=== PATIENT | female | born 1950 | race Caucasian/White ===

== ENCOUNTER → 2016-09-04 | Outpatient (CLI) | payer MEDICARE, BC ==
--- NOTE | 2016-09-04 17:22 | CR ---
EXAMINATION: Right shoulder HISTORY: Pain COMPARISON: 07/27/2010 TECHNIQUE: 3 views FINDINGS: There is no acute osseous abnormality, dislocation, or fracture. Bone mineralization appea rs normal and osteopenic. Mild acromioclavicular osteophytic changes are noted within inferior spur. They calcifications project over the rotator cuff tendons. Moderate joint space narrowing is noted within the glenohumeral joint. Subcortical cystic changes noted at the rotator cuff insertion. IMPRESSION: Degenerative changes without acute findings.
== END | disposition home or self-care (01) ==
LOC: MW.CHORTHO 12:59
PROVIDERS: ATTEND Orthopaedic Surgery
DX: M25.511 Pain in right shoulder (principal); M19.011 Primary osteoarthritis, right shoulder
CPT/HCPCS: 20610; 73030; 99214; J1040

== ENCOUNTER 2019-05-23 08:42 | Day surgery (SDC) | payer MEDICARE, BC ==
[~2019-05-23 08:42] MED LIST: Lactated Ringers 1,000 ML IV SCH; cefOXitin 2 GM in Premix Bag 1 BAG IV ONE
--- NOTE | 2019-05-23 09:44 | PCM.PREANE ---
Preanesthetic Assessment - Anesthesia/Transfusion/Family Hx Anesthesia History: Prior Anesthesia Without Reaction Other Type of Anesthesia Reaction Comment: Denies any known problem in past, reports slight motion sickness Family History of Anesthesia Reaction: No Transfusion History: No Prior Transfusion(s) - Review of Systems General: No Symptoms Pulmonary: No Symptoms Cardiovascular: No Symptoms Gastrointestinal: No Symptoms Neurological: No Symptoms Other: Reports: None - Physical Assessment NPO Status Date: 05/23/19 NPO Status Time: 07:00 Vital Signs: Last Vital Signs Temp 97.3 F 05/23/19 08:54 Pulse 83 05/23/19 08:54 Resp 20 05/23/19 08:54 BP 174/80 H 05/23/19 08:54 Pulse Ox 94 L 05/23/19 08:54 Height: 5 ft 1 in Weight: 68.765 kg ASA Class: 3 Mental Status: Alert & Oriented x3 Airway Class: Mallampati = 2 Dentition: Reports: Normal Dentition ROM/Head Extension: Full Lungs: Clear to Auscultation, Normal Respiratory Effort Cardiovascular: Regular Rate, Regular Rhythm - Allergies Allergies/Adverse Reactions: Allergies Allergy/AdvReac Type Severity Reaction Status Date / Time amoxicillin [Amoxicillin] Allergy Other Verified 05/18/19 10:51 sulfamethoxazole Allergy Rash Verified 05/18/19 10:51 [From Bactrim] trimethoprim [From Bactrim] Allergy Rash Verified 05/18/19 10:51 [place] on the cob Allergy Hives Uncoded 05/18/19 10:51 - Blood Blood Available: No - Anesthesia Plan Pre-Op Medication Ordered: None - Acknowledgements Anesthesia Type Planned: General Anesthesia Pt an Appropriate Candidate for the Planned Anesthesia: Yes Alternatives and Risks of Anesthesia Discussed w Pt/Guardian: Yes Pt/Guardian Understands and Agrees with Anesthesia Plan: Yes Additional Comments: PMH: asthma- uses inhaler daily, no recent exac, htn, thyroid replacement, seizure disorder- last seizure in 1976- on dilantin, ADENIKE- uses CPAP 8-10 hours/ night PLAN: tiva PreAnesthesia Questionnaire HEENT History: Reports: Allergic Rhinitis, Other (See Below) Other HEENT History: wears glasses, has upper and lower dentures Cardiovascular History: Reports: Hypertension Respiratory History: Reports: Asthma, Sleep Apnea Other Respiratory History: uses CPAP, rarely uses rescue inhaler Gastrointestinal History: Reports: GERD Other Gastrointestinal History: Born with 1 kidney Genitourinary History: Reports: Other (See Below) Other Genitourinary History: 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) Other OB/BYN History: hx: Hysterectomy Musculoskeletal History: Reports: Osteoarthritis Other Musculoskeletal History: hx: fractured arm Neurological History: Reports: Seizure, Other (See Below) Other Neuro History: diagnosed with Epilepsy as a child, has not had a seizure for 40+ years, has frequent sinus headaches Endocrine/Metabolic History: Reports: Hypothyroidism Other Endocrine/Metabolic History: Hypothyroidism Other Dermatologic History: Rash that comes & goes - Past Surgical History Head Surgeries/Procedures: Reports: None HEENT Surgical History: Reports: Adenoidectomy, Naso-Sinus Surgery, Tonsillectomy Other HEENT Surgeries/Procedures: T & A as child GI Surgical History: Reports: Colonoscopy Female Surgical History: Reports: Breast Biopsy, Hysterectomy Other Female Surgeries/Procedures: HISTORY Born with 1 Kidney Other Neurological Surgeries/Procedures: Bilateral Carpal TUnnel Release Musculoskeletal Surgical History: Reports: Hip Replacement, Knee Replacement Other Musculoskeletal Surgeries/Procedures:: bilateral CHASE, right TKA Other Oncologic Surgeries/Procedures: Benign Breast Lumpectomy - SUBSTANCE USE Smoking Status *Q: Never Smoker Recreational Drug Use History: No - HOME MEDS Home Medications: Home Meds Budesonide/Formoterol [Symbicort 160-4.5 MCG] 2 inh INH BID 11/17/13 [History] Citalopram [Citalopram HBr] 40 mg PO DAILY 11/17/13 [History] Levothyroxine [Synthroid] 50 mcg PO ACBRK 11/17/13 [History] Losartan [Cozaar] 100 mg PO ACBRK 11/17/13 [History] Melatonin 15 mg PO BEDTIME PRN 11/17/13 [History] Omeprazole 40 mg PO DAILY 11/17/13 [History] Phenytoin Sodium Extended [Dilantin] 200 mg PO BID 11/17/13 [History] Fexofenadine [Esther] 180 mg PO DAILY 02/27/15 [History] Fluticasone Propionate [Flonase Allergy Relief] 1 spray NASBOTH DAILY 04/08/15 [ History] Albuterol [Proair HFA] 2 inh INH Q4H PRN 04/27/15 [History] Azelastine HCl [Azelastine] 1 spray NASBOTH DAILY 05/18/19 [History] EPINEPHrine [Epipen] 0.3 mg SQ ASDIRECTED PRN 05/18/19 [History] Furosemide [Lasix] 20 mg PO QAM 05/18/19 [History] Ipratropium/Albuterol Sulfate [Iprat-Albut 0.5-3(2.5) MG/3 ML] 1 dose NEB ASDIRECTED PRN 05/18/19 [History] Montelukast Sodium 10 mg PO DAILY 05/18/19 [History] Multivitamin [Daily Multiple Vitamin] 1 tab PO DAILY 05/18/19 [History] Pantoprazole Sodium 40 mg PO DAILY 05/18/19 [History] Tiotropium [place] [Spiriva Respimat] 1 dose INH DAILY 05/18/19 [History] - CURRENT (IN HOUSE) MEDS Current Meds: Current Medications Lactated Ringer's (Ringers, Lactated) 1,000 mls @ 125 mls/hr IV ASDIRECTED TURNER Last Admin: 05/23/19 09:10 Dose: 125 mls/hr Discontinued Medications Cefoxitin Sodium 2 gm/ Premix 50 mls @ 100 mls/hr IV ONETIME ONE Stop: 05/23/19 07:29
[2019-05-23] MEDS ORDERED: Propofol 200 MG/20 ML SDV ONE ×2 (11:33→11:59)
--- NOTE | 2019-05-23 12:24 | PCM.OPNOTE ---
- General Post-Op/Procedure Note Date of Surgery/Procedure: 05/23/19 Operative Procedure(s): Colonoscopy Pre Op Diagnosis: Change in bowel habits. Decreased stool caliber. Unexplained weight loss. Post-Op Diagnosis: No evidence of neoplasia. Anesthesia Technique: MAC (ASA III) Primary Surgeon: Tod Miranda Operations Label Clerk: Tayler Nguyen Condition: Good Free Text/Narrative:: DICTATION 350318 CPT CODE 90277
[2019-05-23] MEDS ORDERED: Lactated Ringers 1,000 ML IV SCH (12:30)
--- NOTE | 2019-05-23 12:38 | PCM.POSTAN ---
POST ANESTHESIA ASSESSMENT - MENTAL STATUS Mental Status: Alert, Oriented - VITAL SIGNS Vital Signs: Last Vital Signs Temp 97.3 F 05/23/19 08:54 Pulse 73 05/23/19 12:30 Resp 15 05/23/19 12:30 BP 138/76 05/23/19 12:30 Pulse Ox 98 05/23/19 12:30 - RESPIRATORY Respiratory Status: Respiratory Rate WNL, Airway Patent, O2 Saturation Stable - CARDIOVASCULAR CV Status: Pulse Rate WNL, Blood Pressure Stable - GASTROINTESTINAL GI Status: No Symptoms - POST OP HYDRATION Hydration Status: Adequate & Stable
--- NOTE | 2019-05-23 12:38 | PCM48HPAN ---
Post Anesthesia Note - EVALUATION WITHIN 48HRS OF ANESTHETIC Vital Signs in Normal Range: Yes Patient Participated in Evaluation: Yes Respiratory Function Stable: Yes Airway Patent: Yes Cardiovascular Function Stable: Yes Hydration Status Stable: Yes Pain Control Satisfactory: Yes Nausea and Vomiting Control Satisfactory: Yes Mental Status Recovered: Yes Vital Signs: Last Vital Signs Temp 97.3 F 05/23/19 08:54 Pulse 73 05/23/19 12:30 Resp 15 05/23/19 12:30 BP 138/76 05/23/19 12:30 Pulse Ox 98 05/23/19 12:30
[2019-05-23 12:39] VITALS: BP 144/66; PULSE 77
--- NOTE | 2019-05-23 12:43 | OR ---
SURGEON: Tod Miranda M.D. DATE OF PROCEDURE: 05/23/2019 OPERATION PERFORMED: Colonoscopy. PRIMARY SURGEON: Tod Miranda MD. CARPENTER ASSISTANT INSTALLER: assistant county attorney: Dr. Nguyen, PGY2. ANESTHESIA: MAC. ASA CLASSIFICATION: III. PREOPERATIVE DIAGNOSES: 1. Change in bowel habits. 2. Decreased stool caliber. 3. Weight loss. POSTOPERATIVE DIAGNOSIS: No evidence of neoplasia. DESCRIPTION OF PROCEDURE: The patient was taken to the endoscopy room and positioned on the endoscopy table in the left lateral decubitus position. Time-out was called for appropriate identification of the patient and procedure. Monitored anesthesia care was provided. The colonoscope was inserted into the rectum and advanced with moderate difficulty to the cecum. The colonoscope was retroflexed to visualize the ascending colon from below, then straightened and slowly withdrawn. The cecum, ascending colon, hepatic flexure, transverse colon, splenic flexure, descending colon, sigmoid colon, and rectum were very well visualized. No tumors, polyps, diverticula, or angiodysplastic changes were noted anywhere in the lower gastrointestinal tract. Once the colonoscope was withdrawn to the rectum, it was retroflexed to visualize the anal orifice from above. Again, no tumors or polyps were seen. The patient does have internal hemorrhoids that are not actively bleeding. The colonoscope was then straightened, the rectum aspirated, and the colonoscope removed. The patient tolerated the procedure well and was taken to recovery room in stable condition. AMANDA / MARGARITA /[id number]
== END 2019-05-23 13:04 | disposition home or self-care (01) ==
LOC: MW.SDS 08:42
PROVIDERS: ATTEND Surgery
DX: R19.4 Change in bowel habit (principal); R63.4 Abnormal weight loss; K64.8 Other hemorrhoids
CPT/HCPCS: 45378; J0694; J2001; J2704; J7120; 00811

== ENCOUNTER 2020-01-26 13:59 | Emergency (ER) | payer MEDICARE, BC ==
[2020-01-26] MEDS ORDERED: Acetaminophen 325 MG Tab PO ONE (14:02)
[2020-01-26] MEDS ORDERED: Morphine 15 MG Tab PO ONE (14:02)
--- NOTE | 2020-01-26 14:06 | EDM.PDOC ---
ED HPI GENERAL MEDICAL PROBLEM - General Chief Complaint: Upper Extremity Injury/Pain Stated Complaint: FELL Time Seen by Provider: 01/26/20 14:00 - History of Present Illness INITIAL COMMENTS - FREE TEXT/NARRATIVE: HPI: This 70-year-old female presents with right upper extremity pain after fall. Pain in the right humerus, elbow and shoulder. Worse with movement. Better with rest. Mechanism of injury: Ground-level fall Time of Injury: Just prior to arrival came straight here ROS: A 10-point review of systems, other than pertinent positives and negatives as stated per HPI, is otherwise negative. Physical Exam: VITAL SIGNS: Reviewed. GENERAL: Appears to be in acute pain HEAD: No signs of head trauma FACE: The facial bones are nontender to palpation. The mandible is nontender to palpation. The oropharynx is normal. There is no dental malocclusion. EYES: Pupils are equal. Extraocular motions intact. EARS: Hearing grossly intact. NOSE: Normal to internal and external inspection NECK: Supple. NEXUS Criteria for Imaging of C-Spine: Focal Neuro Deficit: No Spinal Midline Tenderness: No ALOC: No Intoxication: No Distracting Injury: No C-Spine can be clinically cleared. No imaging Required. CHEST: Nontender to palpation. No crepitus, subcutaneous emphysema, or discoloration. LUNGS: Clear and equal breath sounds bilaterally. No wheezes, rales, or rhonchi. CARDIAC: Regular rate and rhythm. S1 and S2, without murmurs, gallops, or rubs. VASCULAR: No Edema. Peripheral pulses normal and equal in all extremities. ABDOMEN: Soft, without detectable tenderness. No sign of distention. No rebound or guarding, and no masses palpated. Bowel Sounds present. PELVIS: The pelvis is nontender to palpation. There is no tenderness with AP or lateral compression of the pelvis. BACK: The entire axial spine was palpated and there was no tenderness, deformity, or step-off. MUSCULOSKELETAL: Right shoulder, humerus and elbow pain. Distal neurovascular function intact.. NEUROLOGIC EXAM: Alert and oriented x 3. EYE 4 verbal 5 motor 6 no focal sensory or strength deficits. Speech normal. Follows commands. PSYCHIATRIC: Mood normal. SKIN: No rash. Initial Impression & Plan: Extremity trauma: Differential diagnosis includes fracture, dislocation, strain, contusion, tendon or ligamentous injury, compartment syndrome, neurovascular i njury, muscle rupture. X-rays, oral pain medications, reevaluate Right Shoulder Pain Score (Numeric/FACES): 10 - Related Data Allergies Allergy/AdvReac Type Severity Reaction Status Date / Time amoxicillin [Amoxicillin] Allergy Other Verified 01/26/20 14:28 sulfamethoxazole Allergy Rash Verified 01/26/20 14:28 [From Bactrim] trimethoprim [From Bactrim] Allergy Rash Verified 01/26/20 14:28 [place] on the cob Allergy Hives Uncoded 01/26/20 14:28 Home Meds: Home Meds Budesonide/Formoterol [Symbicort 160-4.5 MCG] 2 inh INH BID 11/17/13 [History] Citalopram [Citalopram HBr] 40 mg PO DAILY 11/17/13 [History] Levothyroxine [Synthroid] 50 mcg PO ACBRK 11/17/13 [History] Losartan [Cozaar] 100 mg PO ACBRK 11/17/13 [History] Melatonin 15 mg PO BEDTIME PRN 11/17/13 [History] Omeprazole 40 mg PO DAILY 11/17/13 [History] Phenytoin Sodium Extended [Dilantin] 200 mg PO BID 11/17/13 [History] Fexofenadine [Esther] 180 mg PO DAILY 02/27/15 [History] Fluticasone Propionate [Flonase Allergy Relief] 1 spray NASBOTH DAILY 04/08/15 [History] Albuterol [Proair HFA] 2 inh INH Q4H PRN 04/27/15 [History] Azelastine HCl [Azelastine] 1 spray NASBOTH DAILY 05/18/19 [History] EPINEPHrine [Epipen] 0.3 mg SQ ASDIRECTED PRN 05/18/19 [History] Furosemide [Lasix] 20 mg PO QAM 05/18/19 [History] Ipratropium/Albuterol Sulfate [Iprat-Albut 0.5-3(2.5) MG/3 ML] 1 dose NEB ASDIRECTED PRN 05/18/19 [History] Montelukast Sodium 10 mg PO DAILY 05/18/19 [History] Multivitamin [Daily Multiple Vitamin] 1 tab PO DAILY 05/18/19 [History] Pantoprazole Sodium 40 mg PO DAILY 05/18/19 [History] Tiotropium [place] [Spiriva Respimat] 1 dose INH DAILY 05/18/19 [History] Past Medical History HEENT History: Reports: Allergic Rhinitis, Other (See Below) Other HEENT History: wears glasses, has upper and lower dentures Cardiovascular History: Reports: Hypertension Respiratory History: Reports: Asthma, Sleep Apnea Other Respiratory History: uses CPAP, rarely uses rescue inhaler Gastrointestinal History: Reports: GERD Other Gastrointestinal History: Born with 1 kidney Genitourinary History: Reports: Other (See Below) Other Genitourinary History: 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) Other ELECTRONIC ENGRAVER History: hx: Hysterectomy Musculoskeletal History: Reports: Osteoarthritis Other Musculoskeletal History: hx: fractured arm Neurological History: Reports: Seizure, Other (See Below) Other Neuro History: diagnosed with Epilepsy as a child, has not had a seizure for 40+ years, has frequent sinus headaches Endocrine/Metabolic History: Reports: Hypothyroidism Other Endocrine/Metabolic History: Hypothyroidism Other Dermatologic History: Rash that comes & goes - Past Surgical History Head Surgeries/Procedures: Reports: None HEENT Surgical History: Reports: Adenoidectomy, Naso-Sinus Surgery, Tonsillectomy Other HEENT Surgeries/Procedures: T & A as child GI Surgical History: Reports: Colonoscopy Female Surgical History: Reports: Breast Biopsy, Hysterectomy Other Female Surgeries/Procedures: HISTORY Born with 1 Kidney Other Neurological Surgeries/Procedures: Bilateral Carpal TUnnel Release Musculoskeletal Surgical History: Reports: Hip Replacement, Knee Replacement Other Musculoskeletal Surgeries/Procedures:: bilateral CHASE, right TKA Other Oncologic Surgeries/Procedures: Benign Breast Lumpectomy Review of Systems - Review of Systems Review Of Systems: See Below (noted) ED EXAM, GENERAL - Physical Exam Exam: See Below (noted) Course - Vital Signs Text/Narrative:: Reviewed the chest x-ray is prior to official radiology review and appears the patient has a fracture dislocation at the cervical neck and an anterior type dislocation. It is comminuted and significantly displaced. This will require transfer to a facility with orthopedic backup. Patient has given consent for transfer. The patient does report that she has had a runny nose, cough and difficulty sleeping with some mild body aches. We will obtain a coronavirus test. Last Recorded V/S: Last Vital Signs Temp 97.4 F 01/26/20 14:26 Pulse 68 01/26/20 16:30 Resp 18 01/26/20 16:30 BP 95/50 L 01/26/20 16:30 Pulse Ox 94 L 01/26/20 16:30 - Orders/Labs/Meds Meds: Medications Discontinued Medications Generic Name Dose Route Start Last Admin Trade Name Jayme PRN Reason Stop Dose Admin Acetaminophen 975 mg 01/26/20 14:02 01/26/20 14:57 Tylenol PO 01/26/20 14:03 975 mg NOW ONE Administration Morphine Sulfate 15 mg 01/26/20 14:02 01/26/20 14:58 Morphine PO 01/26/20 14:03 15 mg ONETIME ONE Administration - Re-Assessments/Exams Free Text/Narrative Re-Assessment/Exam: 01/26/20 15:52 Pain is well controlled. CT to rule out underlying injury and better evaluate the shoulder. Dr. Donnelly, emergency department at [facility], accepts this patient in transfer and we will transfer via ambulance. 01/27/20 10:41 PROCEDURE: Fracture Care LOCATION AND FRACTURE TYPE: Right shoulder fracture dislocation INDICATION: Fracture SPLINTING PROCEDURE NOTE: Shoulder immobilizer placed COMPLICATIONS: None NEUROVASCULAR EXAM: intact both before and after procedure. My diagnostic impression 1. Fracture dislocation of the right shoulder Plan is transfer to orthopedic care. Departure - Departure Time of Disposition: 15:14 Disposition: DC/Tfer to Acute Hospital 02 Condition: Fair Clinical Impression: Fracture dislocation of right shoulder joint, Fall - Discharge Information *PRESCRIPTION DRUG MONITORING PROGRAM REVIEWED*: Not Applicable *COPY OF PRESCRIPTION DRUG MONITORING REPORT IN PATIENT JAMES: Not Applicable Referrals: Hugo Yeager MD [Primary Care Provider] - Forms: ED Department Discharge
--- NOTE | 2020-01-26 15:22 | CR ---
Right elbow: 3 views of the right elbow were obtained. Parison: Positioning somewhat less than optimal for good exam. Osteopenia is present. No discrete joint effusion is seen. No definite fracture or dislocation is seen. Impression: 1. Less than optimal study because of positioning. 2. Nothing acute is definitely appreciated. Recommend follow-up study in 10-14 days if patient remains symptomatic. Diagnostic code #3 Study was dictated in MDT
--- NOTE | 2020-01-26 15:26 | CR ---
Right shoulder: 3 views right shoulder were obtained. Displaced surgical neck fracture is seen. Additional displaced fracture at the base of the greater tuberosity. No additional abnormality is seen other than osteopenia. Impression: 1. Displaced proximal humeral fracture as described above. Diagnostic code #5 Study was dictated in MDT
--- NOTE | 2020-01-26 16:34 | CT ---
CT chest Technique: Multiple axial sections through the chest were obtained. Intravenous contrast was not utilized. Comparison: No prior chest imaging. Findings: Visualized upper abdominal structures shows no discrete abnormality. Heart is mildly enlarged with small pericardial effusion. Aorta shows atherosclerotic calcification without aneurysm. Mediastinum and hilar region show no adenopathy. No axillary adenopathy is seen. Proximal humeral fracture is again noted. 5 mm nodule is noted within the right lung base. Lungs show no acute parenchymal change. No pleural effusions or pneumothorax is seen. Bone window settings show scattered degenerative change within the spine. Fracture is again seen within the right shoulder. Anterior wedge deformity within the mid thoracic spine which is most likely chronic. Impression: 1. Findings as noted above. Other than previously noted right shoulder fracture, no other acute abnormality is appreciated. Other nonacute findings as described above. Diagnostic code #3 This report was dictated in MDT
[2020-01-26 17:20] VITALS: BP 95/50; PULSE 68
--- NOTE | 2020-01-27 07:14 | CT ---
CT right shoulder Technique: Multiple axial sections through the right shoulder were obtained. Reconstructed coronal and sagittal images were obtained. Findings: Degenerative change noted within the glenohumeral joint with joint space narrowing and subchondral cysts within both humeral head and glenoid. Fracture is noted within the anatomic neck with displacement of 2.3 cm. Fracture is noted within the base of the greater tuberosity being displaced by 1.4 cm. Coral medial angulation is also noted of the proximal humeral fracture. Degenerative spurring is noted off the inferior acromion process. No additional fracture or other abnormality is seen. Impression: 1. Advanced degenerative change within the glenohumeral joint. 2. Displaced fracture involving the anatomic neck and fracture at the base of the greater tuberosity. Diagnostic code #3 This report was dictated in MDT MTDD
== END 2020-01-26 16:49 ==
LOC: MW.ED 13:59
DX: S42.291A Other displaced fracture of upper end of right humerus, initial encounter for closed fracture (principal); S42.91XA Fracture of right shoulder girdle, part unspecified, initial encounter for closed fracture; J45.909 Unspecified asthma, uncomplicated; K21.9 Gastro-esophageal reflux disease without esophagitis; R56.9 Unspecified convulsions; E03.9 Hypothyroidism, unspecified; W19.XXXA Unspecified fall, initial encounter; Z91.018 Allergy to other foods; Z88.1 Allergy status to other antibiotic agents; Z88.2 Allergy status to sulfonamides
CPT/HCPCS: 71250; 73030; 73080; 73200; 99285; A9270; 99283

== ENCOUNTER 2022-09-15 18:11 | Emergency (ER) | payer MEDICARE, BC ==
[2022-09-15] MEDS ORDERED: Oxymetazoline 0.05% Nasal Spray 30 ML Bottle NAS ONE (20:17)
[2022-09-15] MEDS ORDERED: Tranexamic Acid 1,000 MG/10 ML Vial IV ONE (22:10)
[2022-09-15 22:12] LABS: CARBON DIOXIDE,CO2 29.4 mmol/L (21.0-32.0)
[2022-09-15 23:52] VITALS: BP 177/57; PULSE 81
== END 2022-09-15 23:51 | disposition home or self-care (01) ==
LOC: MW.ED 18:11
DX: R04.0 Epistaxis (principal); I10 Essential (primary) hypertension; J45.909 Unspecified asthma, uncomplicated; K21.9 Gastro-esophageal reflux disease without esophagitis; M19.90 Unspecified osteoarthritis, unspecified site; E03.9 Hypothyroidism, unspecified; Z88.0 Allergy status to penicillin; Z88.2 Allergy status to sulfonamides; Z91.048 Other nonmedicinal substance allergy status; Z79.899 Other long term (current) drug therapy
CPT/HCPCS: 36415; 80048; 85027; 85610; 99283; A9270-GY; J3490

== ENCOUNTER 2023-07-08 17:30 | Inpatient (IN) | payer MEDICARE, BC ==
[2023-07-08] MEDS ORDERED: Sodium Chloride 0.9% 10 ML Syringe FLUSH PRN (18:02)
[2023-07-08] MEDS ORDERED: Sodium Chloride 0.9% 2.5 ML Syringe FLUSH PRN (18:02)
[2023-07-08 18:58] LABS: BASOPHILS ABSOLUTE AUTO 0.01 K/uL (0.00-0.20); BASOPHILS PERCENT AUTO 0.1 % (0.0-1.0); EOSINOPHILS ABSOLUTE AUTO 0.08 K/uL (0.00-0.45); EOSINOPHILS PERCENT AUTO 0.7 % (0.0-6.0); HEMOGLOBIN 14.1 g/dL (12.0-16.0); IMMATURE GRAN ABSOLUTE AUTO 0.04 K/uL (0.00-0.05); IMMATURE GRAN PERCENT AUTO 0.3 % (0.0-0.4); LYMPHOCYTES ABSOLUTE AUTO 0.35 K/uL (1.00-4.80); LYMPHOCYTES PERCENT AUTO 2.9 % (24.0-44.0); MEAN CORPUSCULAR HEMOGLOBIN 32.7 pg (28.0-32.0); MEAN CORPUSCULAR HGB CONC 37.1 g/dL (32.0-36.0); MEAN CORPUSCULAR VOLUME 88.2 fL (83.0-99.0); MEAN PLATELET VOLUME 8.5 fL (9.4-12.3); MONOCYTES ABSOLUTE AUTO 0.93 K/uL (0.00-0.80); MONOCYTES PERCENT AUTO 7.8 % (0.0-8.0); NEUTROPHILS ABSOLUTE AUTO 10.53 K/uL (1.80-7.70); NEUTROPHILS PERCENT AUTO 88.2 % (41.0-71.0); PLATELET COUNT,PLT 215 K/uL (150-400); RED BLOOD CELL COUNT 4.31 M/uL (4.10-5.30); WHITE BLOOD CELL COUNT,WBC 11.94 K/uL (3.9-11.3)
[2023-07-08] MEDS ORDERED: Sodium Chloride 0.9% 500 ML IV SCH (19:00)
[2023-07-08 19:19] LABS: ALBUMIN 3.6 g/dL (3.4-5.0); BILIRUBIN TOTAL 0.8 mg/dL (0.2-1.0); CALCIUM 8.5 mg/dL (8.5-10.1); CARBON DIOXIDE,CO2 27.2 mmol/L (21.0-32.0); CREATININE 0.4 mg/dL (0.6-1.0); EST CRCL DRUG DOSING (CG) 96.11 mL/min; POTASSIUM,K 3.2 mmol/L (3.5-5.1); PROTEIN TOTAL,TP 7.2 g/dL (6.4-8.2); TSH ULTRASENSITIVE 1.5 uIU/mL (0.36-3.74)
[2023-07-08 19:34] LABS: CORONAVIRUS COVID-19 NAA NEGATIVE (NEGATIVE); INFLUENZA A NAA NEGATIVE (NEGATIVE); INFLUENZA B NAA NEGATIVE (NEGATIVE); RESPIRATORY SYNCYTIAL VIR NAA NEGATIVE (NEGATIVE)
[2023-07-08 20:04] LABS: MAGNESIUM 1.8 mg/dL (1.8-2.4)
[2023-07-08 20:48] LABS: CALCIUM 8.2 mg/dL (8.5-10.1); CARBON DIOXIDE,CO2 27.4 mmol/L (21.0-32.0); CREATININE 0.4 mg/dL (0.6-1.0); EST CRCL DRUG DOSING (CG) 96.11 mL/min; POTASSIUM,K 3.2 mmol/L (3.5-5.1)
[2023-07-08 20:50] LABS: APPEARANCE,URINE CLEAR; BILIRUBIN,URINE NEGATIVE (NEGATIVE); COLOR,URINE YELLOW; GLUCOSE,URINE NEGATIVE (NEGATIVE); KETONES,URINE 40 mg/dL (NEGATIVE); LEUKOCYTE ESTERASE,URINE NEGATIVE (NEGATIVE); NITRITE,URINE NEGATIVE (NEGATIVE); OCCULT BLOOD,URINE NEGATIVE (NEGATIVE); PROTEIN,URINE 30 mg/dL (NEGATIVE); UROBILINOGEN,URINE 0.2 EU/dL (<2.0)
[2023-07-08 20:57] LABS: BACTERIA,URINE FEW (NEGATIVE); EPITHELIAL CELLS,URINE FEW (NONE-FEW)
[2023-07-08] MEDS ORDERED: Potassium Chloride 10% 20 MEQ/15 ML Soln 15 ML UD Cup PO ONE (20:57)
[2023-07-08] MEDS: Phenytoin 100 MG Cap.ER PO SCH (21:32)
[2023-07-08 21:40] LABS: CREATININE,URINE RAND 57.2 mg/dL
[2023-07-09] MEDS: Sodium Chloride 0.9% 1,000 ML IV SCH ×3 (00:27→20:17)
[2023-07-09 01:02] LABS: CALCIUM 8.9 mg/dL (8.5-10.1); CARBON DIOXIDE,CO2 27.7 mmol/L (21.0-32.0); CREATININE 0.5 mg/dL (0.6-1.0); EST CRCL DRUG DOSING (CG) 73.36 mL/min; POTASSIUM,K 3.6 mmol/L (3.5-5.1)
[2023-07-09 06:42] LABS: CREATININE 0.4 mg/dL (0.6-1.0); EST CRCL DRUG DOSING (CG) 91.7 mL/min; POTASSIUM,K 3.3 mmol/L (3.5-5.1)
[2023-07-09] MEDS ORDERED: Pantoprazole 40 MG Tab.CR PO SCH (07:30)
[2023-07-09] MEDS: Levothyroxine 50 MCG Tab PO SCH (07:58)
[2023-07-09] MEDS: Phenytoin 100 MG Cap.ER PO SCH ×3 (08:00→20:20)
[2023-07-09] MEDS ORDERED: Potassium Chloride 20 MEQ Tab.ER PO ONE (08:19)
[2023-07-09] MEDS ORDERED: Albuterol/Ipratropium 3.0-0.5 MG/3 ML Neb Soln NEB PRN (11:56)
[2023-07-09] MEDS ORDERED: Tiotropium Bromide 4 GM Inhalation Spray (2.5mcg/1 dose; 10 doses) INH SCH (12:00)
[2023-07-09 12:15] LABS: CALCIUM 7.9 mg/dL (8.5-10.1); CREATININE 0.4 mg/dL (0.6-1.0); EST CRCL DRUG DOSING (CG) 91.7 mL/min; POTASSIUM,K 3.8 mmol/L (3.5-5.1)
[2023-07-09] MEDS ORDERED: Enoxaparin 40 MG/0.4 ML Syringe SUBCUT SCH (12:15)
[2023-07-09] MEDS ORDERED: Albuterol 8 GM Inhaler INH PRN (12:24)
[2023-07-09] MEDS ORDERED: Formoterol/Mometasone 200-5 MCG 8.8 GM Inhaler INH SCH (12:30)
[2023-07-09] MEDS ORDERED: Melatonin 3 MG Tab PO PRN (12:30)
[2023-07-09] MEDS: amLODIPine 5 MG Tab PO SCH (12:43)
[2023-07-09] MEDS: Citalopram 20 MG Tab PO SCH (12:46)
[2023-07-09] MEDS: Fluticasone NASAL Spray 16 GM Bottle NASBOTH SCH (12:46)
[2023-07-09] MEDS: Multivitamin Tab PO SCH (12:46)
[2023-07-09] MEDS: Cetirizine 10 MG Tab PO SCH (12:46)
[2023-07-09] MEDS: AZELASTINE HCL NASBOTH SCH (12:51)
[2023-07-09] MEDS: VILANTEROL INH SCH (17:21)
[2023-07-09] MEDS: FLUTICASONE FUROATE INH SCH (17:21)
[2023-07-09] MEDS: Montelukast 10 MG Tab PO SCH (20:21)
[2023-07-09] MEDS: Pantoprazole 40 MG Tab.CR PO SCH (20:21)
[2023-07-09 21:19] LABS: CARBON DIOXIDE,CO2 25.2 mmol/L (21.0-32.0); CREATININE 0.4 mg/dL (0.6-1.0); EST CRCL DRUG DOSING (CG) 91.7 mL/min; POTASSIUM,K 3.6 mmol/L (3.5-5.1)
[2023-07-10] MEDS: Acetaminophen 325 MG Tab PO PRN ×2 (01:58→19:17)
[2023-07-10] MEDS ORDERED: Diltiazem 25 MG/5 ML SDV IVPUSH ONE (04:02)
[2023-07-10] MEDS: Diltiazem 25 MG/5 ML SDV IVPUSH PRN ×2 (05:38→08:45)
[2023-07-10 06:07] LABS: CALCIUM 7.7 mg/dL (8.5-10.1); CARBON DIOXIDE,CO2 25.2 mmol/L (21.0-32.0); CREATININE 0.3 mg/dL (0.6-1.0); EST CRCL DRUG DOSING (CG) 122.27 mL/min; POTASSIUM,K 3.2 mmol/L (3.5-5.1)
[2023-07-10] MEDS: Levothyroxine 50 MCG Tab PO SCH (07:30)
[2023-07-10] MEDS ORDERED: Potassium Chloride 20 MEQ Tab.ER PO ONE ×2 (08:31→11:35)
[2023-07-10] MEDS: Multivitamin Tab PO SCH (08:58)
[2023-07-10] MEDS: amLODIPine 5 MG Tab PO SCH (08:58)
[2023-07-10] MEDS: Citalopram 20 MG Tab PO SCH (08:58)
[2023-07-10] MEDS: Phenytoin 100 MG Cap.ER PO SCH ×2 (08:58→21:51)
[2023-07-10] MEDS: Cetirizine 10 MG Tab PO SCH (09:00)
[2023-07-10] MEDS ORDERED: Sodium Chloride 1 GM Tab PO ONE ×2 (09:00→18:10)
[2023-07-10] MEDS: AZELASTINE HCL NASBOTH SCH (09:02)
[2023-07-10] MEDS: FLUTICASONE FUROATE INH SCH (09:03)
[2023-07-10] MEDS: Fluticasone NASAL Spray 16 GM Bottle NASBOTH SCH (09:03)
[2023-07-10] MEDS: VILANTEROL INH SCH (09:03)
[2023-07-10] MEDS ORDERED: Magnesium Sulfate/Water 2 GM in Premix Bag 1 BAG IV ONE (11:35)
[2023-07-10 11:43] LABS: BASOPHILS ABSOLUTE AUTO 0.02 K/uL (0.00-0.20); BASOPHILS PERCENT AUTO 0.2 % (0.0-1.0); EOSINOPHILS ABSOLUTE AUTO 0.04 K/uL (0.00-0.45); EOSINOPHILS PERCENT AUTO 0.4 % (0.0-6.0); HEMATOCRIT 35.2 % (37.0-47.0); HEMOGLOBIN 13.1 g/dL (12.0-16.0); IMMATURE GRAN ABSOLUTE AUTO 0.03 K/uL (0.00-0.05); IMMATURE GRAN PERCENT AUTO 0.3 % (0.0-0.4); LYMPHOCYTES ABSOLUTE AUTO 0.56 K/uL (1.00-4.80); LYMPHOCYTES PERCENT AUTO 5.7 % (24.0-44.0); MEAN CORPUSCULAR HGB CONC 37.2 g/dL (32.0-36.0); MEAN CORPUSCULAR VOLUME 88.7 fL (83.0-99.0); MEAN PLATELET VOLUME 8.6 fL (9.4-12.3); MONOCYTES PERCENT AUTO 8.1 % (0.0-8.0); NEUTROPHILS ABSOLUTE AUTO 8.38 K/uL (1.80-7.70); NEUTROPHILS PERCENT AUTO 85.3 % (41.0-71.0); PLATELET COUNT,PLT 215 K/uL (150-400); RED BLOOD CELL COUNT 3.97 M/uL (4.10-5.30); WHITE BLOOD CELL COUNT,WBC 9.83 K/uL (3.9-11.3)
[2023-07-10 12:32] LABS: CALCIUM 8.3 mg/dL (8.5-10.1); CARBON DIOXIDE,CO2 24.2 mmol/L (21.0-32.0); CREATININE 0.3 mg/dL (0.6-1.0); EST CRCL DRUG DOSING (CG) 122.27 mL/min; POTASSIUM,K 4.1 mmol/L (3.5-5.1)
[2023-07-10] MEDS: Metoprolol Tartrate 25 MG Tab PO SCH ×2 (12:59→23:50)
[2023-07-10] MEDS: Apixaban 5 MG Tab PO SCH ×2 (13:06→21:52)
[2023-07-10 20:19] LABS: CALCIUM 8.2 mg/dL (8.5-10.1); CARBON DIOXIDE,CO2 26.6 mmol/L (21.0-32.0); CREATININE 0.4 mg/dL (0.6-1.0); EST CRCL DRUG DOSING (CG) 91.7 mL/min; POTASSIUM,K 3.8 mmol/L (3.5-5.1)
[2023-07-10] MEDS: Pantoprazole 40 MG Tab.CR PO SCH (21:51)
[2023-07-10] MEDS: Montelukast 10 MG Tab PO SCH (21:52)
[2023-07-10] MEDS: Ibuprofen 400 MG Tab PO PRN (23:51)
[2023-07-11] MEDS: Acetaminophen 325 MG Tab PO PRN ×3 (01:28→15:40)
[2023-07-11 06:01] LABS: BASOPHILS ABSOLUTE AUTO 0.02 K/uL (0.00-0.20); BASOPHILS PERCENT AUTO 0.3 % (0.0-1.0); EOSINOPHILS ABSOLUTE AUTO 0.12 K/uL (0.00-0.45); EOSINOPHILS PERCENT AUTO 1.7 % (0.0-6.0); HEMATOCRIT 34.1 % (37.0-47.0); HEMOGLOBIN 12.7 g/dL (12.0-16.0); IMMATURE GRAN ABSOLUTE AUTO 0.05 K/uL (0.00-0.05); IMMATURE GRAN PERCENT AUTO 0.7 % (0.0-0.4); LYMPHOCYTES ABSOLUTE AUTO 0.74 K/uL (1.00-4.80); LYMPHOCYTES PERCENT AUTO 10.2 % (24.0-44.0); MEAN CORPUSCULAR HEMOGLOBIN 32.7 pg (28.0-32.0); MEAN CORPUSCULAR HGB CONC 37.2 g/dL (32.0-36.0); MEAN CORPUSCULAR VOLUME 87.9 fL (83.0-99.0); MEAN PLATELET VOLUME 8.5 fL (9.4-12.3); MONOCYTES ABSOLUTE AUTO 0.86 K/uL (0.00-0.80); MONOCYTES PERCENT AUTO 11.8 % (0.0-8.0); NEUTROPHILS ABSOLUTE AUTO 5.48 K/uL (1.80-7.70); NEUTROPHILS PERCENT AUTO 75.3 % (41.0-71.0); PLATELET COUNT,PLT 233 K/uL (150-400); RED BLOOD CELL COUNT 3.88 M/uL (4.10-5.30); WHITE BLOOD CELL COUNT,WBC 7.27 K/uL (3.9-11.3)
[2023-07-11 06:31] LABS: CALCIUM 8.1 mg/dL (8.5-10.1); CARBON DIOXIDE,CO2 28.1 mmol/L (21.0-32.0); CREATININE 0.4 mg/dL (0.6-1.0); EST CRCL DRUG DOSING (CG) 91.7 mL/min; MAGNESIUM 1.9 mg/dL (1.8-2.4); PHOSPHORUS 1.9 mg/dL (2.6-4.7); POTASSIUM,K 3.9 mmol/L (3.5-5.1)
[2023-07-11] MEDS: Levothyroxine 50 MCG Tab PO SCH (06:31)
[2023-07-11] MEDS ORDERED: Sodium Chloride 1 GM Tab PO ONE ×2 (07:55→11:00)
[2023-07-11] MEDS: Phenytoin 100 MG Cap.ER PO SCH ×2 (08:04→20:34)
[2023-07-11] MEDS: Multivitamin Tab PO SCH (08:05)
[2023-07-11] MEDS: Citalopram 20 MG Tab PO SCH (08:06)
[2023-07-11] MEDS: amLODIPine 5 MG Tab PO SCH (08:06)
[2023-07-11] MEDS: Ibuprofen 400 MG Tab PO PRN ×2 (08:13→19:32)
[2023-07-11] MEDS: Apixaban 5 MG Tab PO SCH ×2 (08:13→20:35)
[2023-07-11] MEDS: Fluticasone NASAL Spray 16 GM Bottle NASBOTH SCH (08:15)
[2023-07-11] MEDS: AZELASTINE HCL NASBOTH SCH (08:15)
[2023-07-11] MEDS: VILANTEROL INH SCH (08:15)
[2023-07-11] MEDS: FLUTICASONE FUROATE INH SCH (08:15)
[2023-07-11] MEDS: Cetirizine 10 MG Tab PO SCH (11:13)
[2023-07-11] MEDS: Metoprolol Tartrate 25 MG Tab PO SCH (11:13)
[2023-07-11] MEDS: Phosphorus #1 250 MG Tab PO SCH ×3 (11:17→23:09)
[2023-07-11] MEDS: Diltiazem 25 MG/5 ML SDV IVPUSH PRN ×2 (15:20→20:37)
[2023-07-11] MEDS ORDERED: Metoprolol Tartrate 25 MG Tab PO ONE (17:40)
[2023-07-11] MEDS: Pantoprazole 40 MG Tab.CR PO SCH (20:35)
[2023-07-11] MEDS: Montelukast 10 MG Tab PO SCH (20:35)
[2023-07-11] MEDS: Metoprolol Tartrate 50 MG Tab PO SCH (23:08)
[2023-07-12] MEDS: Acetaminophen 325 MG Tab PO PRN ×2 (01:50→09:04)
[2023-07-12] MEDS: Ibuprofen 400 MG Tab PO PRN ×2 (04:19→20:26)
[2023-07-12 05:45] LABS: BASOPHILS ABSOLUTE AUTO 0.04 K/uL (0.00-0.20); BASOPHILS PERCENT AUTO 0.6 % (0.0-1.0); EOSINOPHILS ABSOLUTE AUTO 0.23 K/uL (0.00-0.45); EOSINOPHILS PERCENT AUTO 3.7 % (0.0-6.0); HEMATOCRIT 37.6 % (37.0-47.0); HEMOGLOBIN 13.8 g/dL (12.0-16.0); IMMATURE GRAN ABSOLUTE AUTO 0.04 K/uL (0.00-0.05); IMMATURE GRAN PERCENT AUTO 0.6 % (0.0-0.4); LYMPHOCYTES ABSOLUTE AUTO 0.88 K/uL (1.00-4.80); MEAN CORPUSCULAR HEMOGLOBIN 32.6 pg (28.0-32.0); MEAN CORPUSCULAR HGB CONC 36.7 g/dL (32.0-36.0); MEAN CORPUSCULAR VOLUME 88.9 fL (83.0-99.0); MEAN PLATELET VOLUME 8.6 fL (9.4-12.3); MONOCYTES ABSOLUTE AUTO 0.86 K/uL (0.00-0.80); MONOCYTES PERCENT AUTO 13.7 % (0.0-8.0); NEUTROPHILS ABSOLUTE AUTO 4.25 K/uL (1.80-7.70); NEUTROPHILS PERCENT AUTO 67.4 % (41.0-71.0); PLATELET COUNT,PLT 312 K/uL (150-400); RED BLOOD CELL COUNT 4.23 M/uL (4.10-5.30)
[2023-07-12 06:19] LABS: CARBON DIOXIDE,CO2 27.7 mmol/L (21.0-32.0); CREATININE 0.4 mg/dL (0.6-1.0); EST CRCL DRUG DOSING (CG) 91.7 mL/min; MAGNESIUM 1.6 mg/dL (1.8-2.4); PHOSPHORUS 2.6 mg/dL (2.6-4.7); POTASSIUM,K 3.3 mmol/L (3.5-5.1)
[2023-07-12] MEDS: Phosphorus #1 250 MG Tab PO SCH ×2 (06:30→12:05)
[2023-07-12] MEDS: Levothyroxine 50 MCG Tab PO SCH (06:30)
[2023-07-12] MEDS: Citalopram 20 MG Tab PO SCH (09:05)
[2023-07-12] MEDS: amLODIPine 5 MG Tab PO SCH (09:05)
[2023-07-12] MEDS: FLUTICASONE FUROATE INH SCH (09:06)
[2023-07-12] MEDS: Phenytoin 100 MG Cap.ER PO SCH ×2 (09:06→20:27)
[2023-07-12] MEDS: Multivitamin Tab PO SCH (09:06)
[2023-07-12] MEDS: Cetirizine 10 MG Tab PO SCH (09:06)
[2023-07-12] MEDS: Apixaban 5 MG Tab PO SCH ×2 (09:06→20:27)
[2023-07-12] MEDS: VILANTEROL INH SCH (09:06)
[2023-07-12] MEDS: AZELASTINE HCL NASBOTH SCH (09:07)
[2023-07-12] MEDS: Fluticasone NASAL Spray 16 GM Bottle NASBOTH SCH (09:07)
[2023-07-12] MEDS: Metoprolol Tartrate 50 MG Tab PO SCH ×2 (12:03→23:11)
[2023-07-12] MEDS ORDERED: Potassium Chloride 20 MEQ Tab.ER PO ONE (12:17)
[2023-07-12] MEDS ORDERED: Magnesium Sulfate/Water 2 GM in Premix Bag 1 BAG IV ONE (12:17)
[2023-07-12] MEDS: Montelukast 10 MG Tab PO SCH (20:27)
[2023-07-12] MEDS: Pantoprazole 40 MG Tab.CR PO SCH (20:27)
[2023-07-13] MEDS: Acetaminophen 325 MG Tab PO PRN ×2 (02:07→11:10)
[2023-07-13] MEDS: Ibuprofen 400 MG Tab PO PRN ×3 (04:41→23:12)
[2023-07-13] MEDS: Levothyroxine 50 MCG Tab PO SCH ×2 (06:26→07:27)
[2023-07-13 06:27] LABS: HEMATOCRIT 39.3 % (37.0-47.0); HEMOGLOBIN 14.2 g/dL (12.0-16.0); MEAN CORPUSCULAR HGB CONC 36.1 g/dL (32.0-36.0); MEAN CORPUSCULAR VOLUME 88.5 fL (83.0-99.0); MEAN PLATELET VOLUME 8.2 fL (9.4-12.3); PLATELET COUNT,PLT 359 K/uL (150-400); RED BLOOD CELL COUNT 4.44 M/uL (4.10-5.30); WHITE BLOOD CELL COUNT,WBC 6.38 K/uL (3.9-11.3)
[2023-07-13 06:37] LABS: CALCIUM 8.5 mg/dL (8.5-10.1); CREATININE 0.5 mg/dL (0.6-1.0); EST CRCL DRUG DOSING (CG) 73.36 mL/min; MAGNESIUM 1.9 mg/dL (1.8-2.4)
[2023-07-13] MEDS: Apixaban 5 MG Tab PO SCH ×2 (08:39→20:17)
[2023-07-13] MEDS: amLODIPine 5 MG Tab PO SCH (08:39)
[2023-07-13] MEDS: Cetirizine 10 MG Tab PO SCH (08:39)
[2023-07-13] MEDS: Multivitamin Tab PO SCH (08:39)
[2023-07-13] MEDS: Citalopram 20 MG Tab PO SCH (08:39)
[2023-07-13] MEDS: Fluticasone NASAL Spray 16 GM Bottle NASBOTH SCH (09:01)
[2023-07-13] MEDS: VILANTEROL INH SCH (09:02)
[2023-07-13] MEDS: FLUTICASONE FUROATE INH SCH (09:02)
[2023-07-13] MEDS: AZELASTINE HCL NASBOTH SCH (09:11)
[2023-07-13] MEDS: Phenytoin 100 MG Cap.ER PO SCH ×2 (09:24→20:17)
[2023-07-13] MEDS: Metoprolol Tartrate 50 MG Tab PO SCH ×2 (11:10→23:13)
[2023-07-13] MEDS ORDERED: Sodium Chloride 1 GM Tab PO ONE (13:14)
[2023-07-13 15:09] LABS: CALCIUM 8.6 mg/dL (8.5-10.1); CREATININE 0.4 mg/dL (0.6-1.0); EST CRCL DRUG DOSING (CG) 91.7 mL/min; POTASSIUM,K 4.2 mmol/L (3.5-5.1)
[2023-07-13] MEDS ORDERED: Iopamidol 755 MG/ML 500 ML Multipack Bottle IVPUSH STA (16:51)
[2023-07-13 18:40] LABS: CALCIUM 8.6 mg/dL (8.5-10.1); CARBON DIOXIDE,CO2 29.2 mmol/L (21.0-32.0); CREATININE 0.6 mg/dL (0.6-1.0); EST CRCL DRUG DOSING (CG) 61.13 mL/min; POTASSIUM,K 4.2 mmol/L (3.5-5.1)
[2023-07-13] MEDS: Pantoprazole 40 MG Tab.CR PO SCH (20:17)
[2023-07-13] MEDS: Montelukast 10 MG Tab PO SCH (20:17)
[2023-07-14] MEDS: Levothyroxine 50 MCG Tab PO SCH (06:30)
[2023-07-14] MEDS: Ibuprofen 400 MG Tab PO PRN (08:06)
[2023-07-14] MEDS: Citalopram 20 MG Tab PO SCH (08:07)
[2023-07-14] MEDS: Multivitamin Tab PO SCH (08:07)
[2023-07-14] MEDS: Apixaban 5 MG Tab PO SCH (08:07)
[2023-07-14] MEDS: Cetirizine 10 MG Tab PO SCH (08:07)
[2023-07-14] MEDS: Phenytoin 100 MG Cap.ER PO SCH (08:08)
[2023-07-14 09:16] VITALS: BP 151/92; PULSE 109
[2023-07-14] MEDS: amLODIPine 5 MG Tab PO SCH (09:17)
[2023-07-14] MEDS: Fluticasone NASAL Spray 16 GM Bottle NASBOTH SCH (09:17)
[2023-07-14] MEDS: VILANTEROL INH SCH (09:18)
[2023-07-14] MEDS: FLUTICASONE FUROATE INH SCH (09:18)
[2023-07-14] MEDS: AZELASTINE HCL NASBOTH SCH (09:18)
== END 2023-07-14 09:50 | disposition home health service (06) | DRG 641 ==
LOC: MW.ED 17:30 → MW.MS 21:09
PROVIDERS: ADMIT Internal Medicine; ATTEND Internal Medicine
DX: E87.1 Hypo-osmolality and hyponatremia (principal); E03.9 Hypothyroidism, unspecified; G47.33 Obstructive sleep apnea (adult) (pediatric); I10 Essential (primary) hypertension; I48.91 Unspecified atrial fibrillation; G40.909 Epilepsy, unspecified, not intractable, without status epilepticus; Z88.8 Allergy status to other drugs, medicaments and biological substances; I11.0 Hypertensive heart disease with heart failure; I50.9 Heart failure, unspecified; K21.9 Gastro-esophageal reflux disease without esophagitis; Z20.822 Contact with and (suspected) exposure to COVID-19; E66.9 Obesity, unspecified; F32.A Depression, unspecified; F41.9 Anxiety disorder, unspecified; J45.909 Unspecified asthma, uncomplicated; E86.0 Dehydration; M19.90 Unspecified osteoarthritis, unspecified site; Z11.52 Encounter for screening for COVID-19; Z79.01 Long term (current) use of anticoagulants; Z88.2 Allergy status to sulfonamides; Z88.0 Allergy status to penicillin; Z91.018 Allergy to other foods; Z79.890 Hormone replacement therapy; Z79.899 Other long term (current) drug therapy; Z97.3 Presence of spectacles and contact lenses; Z90.710 Acquired absence of both cervix and uterus; Z96.612 Presence of left artificial shoulder joint; Z96.611 Presence of right artificial shoulder joint; Z96.651 Presence of right artificial knee joint; Z96.643 Presence of artificial hip joint, bilateral
CPT/HCPCS: 0241U; 36415; 71045; 71275; 80048; 80053; 81001; 82550; 82570; 83690; 83735; 83880; 84100; 84300; 84443; 84484; 85025; 85027; 93005; 93306; 96360; 97161; 97530; 99285; 93010; A9270-GY; J1650; J3475; J3490; J7030; J7040; Q9967